=== PATIENT | male | born 1940 | race Caucasian/White ===

== ENCOUNTER 2017-06-29 21:59 | Emergency (ER) | END 2017-06-30 04:52 | disposition home or self-care (01) ==

== ENCOUNTER 2019-01-14 10:00 | Observation (INO) | payer BC, OTHER ==
[~2019-01-14] VITALS: Ht 152.4 cm; Wt 64.4 kg
[~2019-01-14 10:00] MED LIST: ACET325T33 PO; ATOR20TA38 PO; D-ME473S2 PO; LEVO750T25 PO; TAMS-14 PO
[2019-01-14] MEDS ORDERED: HYDROCODONE/APAP (5/325) TAB PO ONE (11:30)
[2019-01-14] MEDS ORDERED: AZITHROMYCIN 500MG/NS (PMX) 250 ML IV STA (13:05)
[2019-01-14] MEDS ORDERED: CEFTRIAXONE 1 GM/50 ML (PMX) 50 ML IVPB STA (13:05)
[2019-01-14] MEDS ORDERED: SOD CHLORIDE 0.9% 1,000 ML IV SCH (13:36)
[2019-01-14] MEDS ORDERED: ACETAMINOPHEN 325 MG TAB PO PRN (14:00)
[2019-01-14] MEDS ORDERED: ONDANSETRON 4 MG INJ IV PRN (14:00)
[2019-01-14 15:28] VITALS: BP 139/67; PULSE 69; RESP 18
[2019-01-14 15:40] VITALS: BP 137/77; PULSE 62; RESP 18
[2019-01-14] MEDS ORDERED: LEVOFLOXACIN 500MG/D5W (PMX) 100 ML IVPB SCH (16:00)
[2019-01-14 16:21] VITALS: Ht 152.4 cm; Wt 64.4 kg
[2019-01-14] MEDS ORDERED: ZOLPIDEM 5 MG TAB PO PRN (18:30)
[2019-01-14 20:02] VITALS: BP 137/64; PULSE 65; RESP 16
[2019-01-14] MEDS: ALBUTEROL/IPRATROPIUM (NEB) 3 ML AMP HHN SCH (20:24)
[2019-01-14] MEDS ORDERED: ATORVASTATIN 20 MG TAB PO SCH (21:00)
[2019-01-14] MEDS ORDERED: TAMSULOSIN (SR) 0.4 MG CAP PO SCH (21:00)
[2019-01-15] MEDS: ALBUTEROL/IPRATROPIUM (NEB) 3 ML AMP HHN SCH ×4 (00:15→13:12)
[2019-01-15 01:23] VITALS: BP 104/54; PULSE 67; RESP 17
[2019-01-15 08:04] VITALS: BP 117/62; PULSE 70; RESP 16
[2019-01-15] MEDS ORDERED: VANCOMYCIN IV PER PHARMACY XX SCH (09:30)
[2019-01-15] MEDS ORDERED: VANCOMYCIN 1 GM (PMX) 250 ML IVPB ONE (09:30)
[2019-01-15 14:29] VITALS: BP 113/55; PULSE 95; RESP 16
[2019-01-15] MEDS ORDERED: VANCOMYCIN 1 GM (PMX) 250 ML IVPB SCH (22:00)
== END 2019-01-15 17:30 | disposition home or self-care (01) ==
LOC: E/R 10:00 → 2NE 13:38
PROVIDERS: ADMIT Internal Medicine; ATTEND Internal Medicine
DX: J92.0 Pleural plaque with presence of asbestos (principal); E78.5 Hyperlipidemia, unspecified; N40.0 Benign prostatic hyperplasia without lower urinary tract symptoms
CPT/HCPCS: 71045; 71250; 80048; 84484; 85025; 87040; 93005; 94640; 94664; G0378; J0456; J0696; J1956; J3370; J7030; 36415; 96374